=== PATIENT | male | born 1970 | race Caucasian/White ===

== ENCOUNTER 2024-07-29 16:52 | Emergency (ER) | payer OTHER, SELFPAY ==
[2024-07-29 17:09] VITALS: BP 157/102
--- NOTE | 2024-07-29 19:00 | ED.GENMED ---
History of Present Illness
General
Chief Complaint: Skin Surface Trauma
Time Seen by Provider: 07/29/24 18:06
History of Present Illness
History of Present Illness:
Patient is a 53-year-old male with no reported chronic medical problems here today after he injured his right fourth and fifth fingers along the distal aspect earlier today with a fence post. His injury is primarily noted along the distal tip with
an injury to the nail along the right fourth finger. Unknown last tetanus vaccination. He is able to move his fingers but endorses pain when doing so. He has noted mild bleeding.
Past History
Past History
ED Past Medical History: HTN
Social History
Living: with family
Review of Systems
Review of Systems
All Other Systems: ROS reviewed and negative except as documented in HPI and ROS
Phy Exam
Physical Exam
Physical Exam:
GENERAL: Alert , in no apparent distress
EYE: pupils equal and reactive
NECK: Supple
NEUROLOGICAL: Alert and oriented, no focal neuro deficits
SKIN: Warm and dry, skin intact.
MUSCULOSKELETAL: There is moderate tenderness with swelling and ecchymosis noted along the distal tips of the right fourth and fifth fingers both dorsally and ventrally, the right fourth nail has been somewhat removed from the base however it is
still adhered appropriately and there is mild active bleeding, there is a small open wound along the distal fat pad of the right fifth finger, there is intact range of motion, sensation intact, pulses 2+ throughout
PSYCH: Normal and appropriate interaction.
Course
Orders/Labs/Results
Orders:
Orders
07/29/24 18:14
Hand, Right 3 View [CR Hand - Right Min 3 Views] Urgent
Comment:
Reason For Exam: crush injury to right pinky and ring finger.
07/29/24 20:00
Tetanus/Diphth/Acelpertussis [Adacel] 0.5 ml IM .ONCE ONE
07/29/24 20:18
CeFAZolin 1 GRAM [Ancef] 1 gram in 5 ml IV NOW
Vital Signs
Initial and Last Documented VS:
Initial Vital Signs
Pulse Resp BP Pulse Ox
98 18 157/102 99
07/29/24 17:09 07/29/24 17:09 07/29/24 17:09 07/29/24 17:09
Last Documented Vital Signs
Temp Pulse Resp BP Pulse Ox
98.2 F 66 18 162/81 100
07/29/24 17:11 07/29/24 20:39 07/29/24 20:39 07/29/24 20:39 07/29/24 20:39
MDM/Problems Addressed
Differential Diagnosis Includes:
Patient is a 53-year-old male with no reported chronic medical problems here today after he injured his right fourth and fifth fingers along the distal aspect earlier today. Overall, patient appears well. Physical examination described above.
Given symptoms/findings, will begin with x-rays. Patient declines wanting pain medication. Of note, blood pressure is elevated. Likely secondary to pain.
07/29/2024 20:56: X-ray reveals evidence of a distal phalanx fracture. Patient made aware. Case was discussed with orthopedic doctor, Dr. Hightower. No indication for removal of nail. Laceration/finger was copiously irrigated with normal saline and
dressed with gauze. Tetanus vaccination updated. Patient prophylactically given antibiotics with cefazolin and will be discharged with cephalexin. Recommend close follow-up with hand surgery. Discussed importance of evaluation. All questions
answered. Stable for discharge.
*Critical Care Note
Total Time (30-74mins, 75-104mins- exclusive of procedures): Not Applicable
ED Attending Note
-
Portions of this chart may have been created with voice recognition software.� Occasional wrong word or��sound alike� substitutions may have occurred due to the inherent limitations of voice recognition software.
Discharge Plan
Departure
Patient Disposition: Home (Routine Discharge)
Date of Disposition: 07/29/24
Time of Disposition: 20:56
Patient with high blood pressure during this ER visit?: Yes
Condition: Fair
Discharge Problem:
Fracture of distal phalanx of finger of right hand
Instructions: Finger Fracture ED
Prescriptions:
New
cephalexin 500 mg capsule
500 mg PO QID 7 Days Qty: 28 0RF
No Action
lisinopril 5 MG tablet
5 mg PO DAILY
famotidine 20 MG tablet
20 mg PO BID Qty: 28 0RF
Rx Instructions:
Take 20 mg twice a day for 14 days
ascorbic acid (vitamin C) [Vitamin C] 500 MG tablet
1,000 mg PO BID Qty: 56 0RF
Rx Instructions:
Take 1,000 mg twice a day for 14 days
aspirin 81 MG tablet,chewable
81 mg PO DAILY Qty: 14 0RF
Rx Instructions:
Take 81 mg daily for 14 days
zinc sulfate 220 MG capsule
220 mg PO DAILY Qty: 14 0RF
Rx Instructions:
Take 220 mg daily for 14 days
cholecalciferol (vitamin D3) 1,000 UNITS tablet
2,000 units PO DAILY Qty: 28 0RF
Rx Instructions:
Take 2,000 units daily for 14 days
melatonin 5 MG tablet
5 mg PO HS Qty: 14 0RF
Rx Instructions:
Take 5 mg daily at bedtime for 14 days
ondansetron 4 MG tablet,disintegrating
4 mg PO TIDPRN PRN (Reason: nausea/vomiting) Qty: 15 0RF
Referrals:
NONE,* [Family Provider] -
Kingston Hightower MD [Active] - Follow up in 1 week
Activity Restrictions/Additional Instructions:
You were seen today after you sustained a finger injury.
We obtained an x-ray which reveals a broken bone along your right fourth finger.
We irrigated and cleaned your wound and applied a dressing and splint.
You were given antibiotics and will be discharged with a prescription for a medication called cephalexin to take as directed.
Your tetanus vaccination was updated.
Take [id number] ibuprofen and Tylenol as directed as needed for pain.
Follow-up with the orthopedic doctors within the next 7 days for close reevaluation.
Return for any new, worsening, or concerning symptoms.
Interventions
Interventions:
*Risk Screen - Suicide Last Done: 07/29/24 17:09
*General Assessment Last Done: 07/29/24 17:09
*Neglect/Abuse Screening Last Done: 07/29/24 20:25
*ED- Fall Risk Assessment Last Done: 07/29/24 19:55
*ED COVID-19 Vaccine History Last Done: 07/29/24 19:55
*Nursing Disposition Last Done: 07/29/24 21:03
ED-Skin Assessment Last Done: 07/29/24 19:55
Discharge Date and Time
Discharge Date/Time: 07/29/24 21:03
Print Language: PERSIAN
[2024-07-29] MEDS: ANCEF 5 IV (20:34)
[2024-07-29] MEDS: ADACEL 0.5 ML IM (20:37)
[2024-07-29 20:39] VITALS: BP 162/81
== END 2024-07-29 21:03 | disposition home or self-care (01) ==
LOC: EMR 16:52
PROVIDERS: EMERGENCY PHYSICIAN Student in an Organized Health Care Education/Training Program
DX: S62.634A Displaced fracture of distal phalanx of right ring finger, initial encounter for closed fracture (principal); W23.0XXA Caught, crushed, jammed, or pinched between moving objects, initial encounter; Z23 Encounter for immunization; I10 Essential (primary) hypertension
CPT/HCPCS: 99283; 96374; 90471; 73130; 90715